=== PATIENT | male | born 2000 | race Caucasian/White ===

== ENCOUNTER 2021-08-18 09:45 | Emergency (ER) | payer OTHER ==
[~2021-08-18] VITALS: Ht 180.3 cm; Wt 85.0 kg
[2021-08-18 10:41] VITALS: BP 131/67
== END 2021-08-18 12:44 | disposition home or self-care (01) ==
LOC: EMS 09:53
DX: Z00.00 Encounter for general adult medical examination without abnormal findings (principal)
CPT/HCPCS: 74176; 99284; Z7502